=== PATIENT | female | born 1955 | race Caucasian/White ===

== ENCOUNTER 2016-09-01 16:56 | Emergency (ER) | payer OTHER ==
[~2016-09-01] VITALS: Ht 160 cm; Wt 80.0 kg
[~2016-09-01 16:56] MED LIST: AMLO5TAB2 PO; AZEL137S EACH NARE; BRIM0.2S4 EACH EYE; CITA20TA4 PO; DULE100A INH; LANS30CA PO; LEVO50TA4 PO; LISI30TA4 PO; LISI40TA PO; METF500T PO; MONT10TA2 PO; PRIM50TA5 PO; RISP1TAB2 PO; RISP2TAB2 PO; SITA25 PO; TIOT1AER2 INH; ZETI10TA5 PO; cpap FM
[2016-09-01 16:59] VITALS: BP 134/76; PULSE 118; RESP 20; TEMP 98.1; O2SAT 92
[2016-09-01] MEDS ORDERED: SODIUM CHLOR 0.9% 1000 ML INJ 1,000 ML IV SCH (17:27)
[2016-09-01] MEDS ORDERED: ONDANSETRON HCL 4 MG/2 ML VIAL IVP ONE (17:30)
[2016-09-01] MEDS ORDERED: SODIUM CHLORIDE 0.9% FLUSH 5 ML FLUSH IVF PRN (17:30)
--- NOTE | 2016-09-01 17:34 | PD ---
HPI Chief Complaint: GI Complaint Time Seen by Provider: 17:20 Travel History International Travel<30 days: No Contact w/Intl Traveler<30days: No Traveled to known affect area: No History of Present Illness HPI 61-year-old female here for evaluation of nausea, abdominal discomfort, fever, sore throat. Symptoms started today. The patient reports that 2 weeks ago she had a procedure for a deviated nasal septum. Sore throat was worse earlier today, has since improved. She reports a temperature of 99.8F at home. She is able to swallow and tolerate her secretions. No cough or respiratory difficulties. No chest pain. Abdominal discomfort is right mid/upper. She has not vomited. She had 2 normal bowel movements today. History of hysterectomy, ovarian cyst removal, and what she believes appendectomy. She received a flu vaccine this year. No urinary symptoms. PFSH Past Medical History Cancer: No Cardiovascular Problems: Yes (cardiac cath 2004 normal) COPD: Yes Diabetes: Yes (on metformin, januvia) Endocrine: Yes Genitourinary: Yes (frequency) Hepatitis: No Hiatal Hernia: Yes Hypertension: Yes Immune Disorder: No Musculoskeletal: Yes (arthritis hips) Neurologic: Yes (tremors, concussions) Psychiatric: Yes (anxiety, depression, past suicidal ideations) Respiratory: Yes (copd, asthma, emphysema, sleep apnea) Schizophrenia: Yes Thyroid Disease: Yes (levothyroxine) ?: Not Past Surgical History Abdominal Surgery: Yes (appendectomy) AICD: No Body Medical Devices: bilat breast implants Cardiac Surgery: No Ear Surgery: No Endocrine Surgery: No Eye Surgery: No Genitourinary Surgery: Yes (sphincter stretch in urethra) Gynecologic Surgery: Yes (4 surgeries for ovarian cysts, hysterectomy) Hysterectomy: Yes Joint Replacement: No Oral Surgery: Yes (teeth removed for partial plate) Pacemaker: No Thoracic Surgery: Yes (left breast mass removal x 2 in 2015) Other Surgery: Yes (OVARIAN CYST) Social History Alcohol Use: No Tobacco Use: No Substance Use: No Allergies-Medications (Allergen,Severity, Reaction): Coded Allergies: Cipro (Verified Allergy, Severe, Confusion, 09/01/16) general confusion with suicidal ideations Dust (Verified Allergy, Severe, Hives, 09/01/16) Erythromycins (Verified Allergy, Severe, Hives, 09/01/16) HMG-CoA Reductase Inhibitors (Verified Allergy, Severe, VOMITING, 09/01/16) Molds and Smuts (Verified Allergy, Severe, Hives, 09/01/16) Sulfa (Verified Allergy, Severe, Anaphylaxis, 09/01/16) tongue swells Timoptic (Verified Allergy, Severe, Respiratory Failure, 09/01/16) stops breathing Codeine (Verified Allergy, Mild, Nausea/Vomiting, 09/01/16) Hydralazine (Verified Allergy, Unknown, DIFFICULTY BREATHING, HIVES, ) Reported Meds & Prescriptions Reported Meds & Active Scripts Active Reported Dymista Nasal [place] (Azelastine-Fluticasone Nasal [place]) 137-50 Mcg [place] 2 [place] EACH NARE BID To each nostril. Citalopram (Citalopram Hydrobromide) 20 Mg Tab 20 Mg PO DAILY Brimonidine Opth Drops (Brimonidine Tartrate) 0.2% Soln 1 Drop EACH EYE HS Zetia (Ezetimibe) 10 Mg Tab 10 Mg PO DAILY Dulera 120 Act Inh (Mometasone-Formoterol 120 Act Inh) 100-5 Mcg/Act Inh 1 Puff INH BID Spiriva Respimat Inh (Tiotropium Inh) 1.25 Mcg/Act Aero 2 Puff INH DAILY 1.25 mcg = 1 inhalation Singulair (Montelukast Sodium) 10 Mg Tab 10 Mg PO DAILY Primidone 50 Mg Tab 50 Mg PO HS Levothyroxine (Levothyroxine Sodium) 50 Mcg Tab 50 Mcg PO DAILY Lansoprazole 30 Mg Capdr 30 Mg PO DAILY Risperidone 2 Mg Tab 2 Mg PO HS Risperidone 1 Mg Tab 1 Mg PO DAILY AT 0800 Amlodipine (Amlodipine Besylate) 5 Mg Tab 5 Mg PO DAILY Metformin (Metformin HCl) 500 Mg Tab 250 Mg PO BIDPC With meals Januvia (Sitagliptin Phosphate) 25 Mg Tab 12.5 Mg PO DAILY Lisinopril 40 Mg Tab 40 Mg PO HS Lisinopril 30 Mg Tab 30 Mg PO DAILY AT 8AM Review of Systems Except as stated in HPI: all other systems reviewed are Neg Physical Exam Narrative GENERAL: Well-developed, well-nourished, comfortable, no acute distress. SKIN: Warm and dry. No rash. HEAD: Atraumatic. Normocephalic. EYES: Pupils equal and round. No scleral icterus. No injection or drainage. ENT: Mucous membranes pink and dry. Normal pharynx. Airway is patent and protected. Normal phonation. NECK: Trachea midline. No JVD. No nuchal rigidity. CARDIOVASCULAR: Regular rate and rhythm. RESPIRATORY: No accessory muscle use. Clear to auscultation. Breath sounds equal bilaterally. GASTROINTESTINAL: Abdomen soft, nondistended. Mild right middle abdominal tenderness without rebound or guarding. Rest of abdomen is soft and nontender. Normal bowel sounds. MUSCULOSKELETAL: No obvious deformities. No clubbing. No cyanosis. No edema. No CVA tenderness. NEUROLOGICAL: Awake and alert. No obvious cranial nerve deficits. Motor grossly within normal limits. Normal speech. PSYCHIATRIC: Appropriate mood and affect; insight and judgment normal. Data Data Last Documented VS Vital Signs Date Time Temp Pulse Resp B/P Pulse Ox O2 Delivery O2 Flow Rate FiO2 09/01/16 17:40 97 Nasal Cannula 3 09/01/16 17:40 102 18 140/65 09/01/16 16:59 98.1 Orders Complete Blood Count With Diff (09/01/16 17:27) Comprehensive Metabolic Panel (09/01/16 17:27) Lipase (09/01/16 17:27) Prothrombin Time / Inr (Pt) (09/01/16 17:27) Act Partial Throm Time (Ptt) (09/01/16 17:27) Urinalysis - C+S If Indicated (09/01/16 17:27) Ct Abd/Pel W Iv Contrast(Rout) (09/01/16 17:27) Iv Access Insert/Monitor (09/01/16 17:27) Ecg Monitoring (09/01/16 17:27) Oximetry (09/01/16 17:27) Ondansetron Inj (Zofran Inj) (09/01/16 17:30) Sodium Chlor 0.9% 1000 Ml Inj (Ns 1000 M (09/01/16 17:27) Sodium Chloride 0.9% Flush (Ns Flush) (09/01/16 17:30) Influenzae A/B Antigen (09/01/16 17:27) Group A Rapid Strep Screen (09/01/16 17:27) Strep Culture (Group A) (09/01/16 17:40) Chest, Single Ap (09/01/16 ) Ct Pulmonary Angiogram (09/01/16 18:56) Sodium Chlor 0.9% 1000 Ml Inj (Ns 1000 M (09/01/16 19:00) Labs Laboratory Tests Test 09/01/16 17:40 White Blood Count 15.5 TH/MM3 Red Blood Count 4.79 MIL/MM3 Hemoglobin 13.2 GM/DL Hematocrit 39.0 % Mean Corpuscular Volume 81.5 FL Mean Corpuscular Hemoglobin 27.5 PG Mean Corpuscular Hemoglobin 33.8 % Concent Red Cell Distribution Width 15.4 % Platelet Count 319 TH/MM3 Mean Platelet Volume 7.8 FL Neutrophils (%) (Auto) % Lymphocytes (%) (Auto) % Monocytes (%) (Auto) % Eosinophils (%) (Auto) % Basophils (%) (Auto) % Neutrophils # (Auto) TH/MM3 Lymphocytes # (Auto) TH/MM3 Monocytes # (Auto) TH/MM3 Eosinophils # (Auto) TH/MM3 Basophils # (Auto) TH/MM3 CBC Comment Prothrombin Time 10.5 SEC Prothromb Time International 1.0 RATIO Ratio Activated Partial 29.5 SEC Thromboplast Time Urine Color YELLOW Urine Turbidity CLEAR Urine pH 6.5 Urine Specific [place] 1.015 Urine Protein NEG mg/dL Urine Glucose (UA) NEG mg/dL Urine Ketones NEG mg/dL Urine Occult Blood NEG Urine Nitrite NEG Urine Bilirubin NEG Urine Urobilinogen LESS THAN 2.0 MG/DL Urine Leukocyte Esterase NEG Urine RBC LESS THAN 1 /hpf Urine WBC LESS THAN 1 /hpf Microscopic Urinalysis Comment CULT NOT INDICATED Sodium Level 133 MEQ/L Potassium Level 4.0 MEQ/L Chloride Level 99 MEQ/L Carbon Dioxide Level 24.9 MEQ/L Anion Gap 9 MEQ/L Blood Urea Nitrogen 13 MG/DL Creatinine 0.69 MG/DL Estimat Glomerular Filtration 86 ML/MIN Rate Random Glucose 155 MG/DL Calcium Level 8.8 MG/DL Total Bilirubin 0.3 MG/DL Aspartate Amino Transf 17 U/L (AST/SGOT) Alanine Aminotransferase 31 U/L (ALT/SGPT) Alkaline Phosphatase 72 U/L Total Protein 7.3 GM/DL Albumin 3.7 GM/DL Lipase 114 U/L [facility] Medical Decision Making Medical Screen Exam Complete: Yes Emergency Medical Condition: Yes Medical Record Reviewed: Yes Differential Diagnosis Influenza, viral illness, enteritis, colitis, pyelonephritis, UTI, cholecystitis , hepatobiliary disease, dehydration Narrative Course Initial vital signs show heart rate 118, blood pressure 134/76, pulse ox 92% on room air, oral temp of 98.1F. CBC shows WBC 15.5, hemoglobin 13.2, hematocrit 39, platelets 319. CMP is unremarkable. UA is not suggestive of UTI. Patient was made aware of all findings. She is feeling a lot better after receiving Zofran. Her O2 saturation is somewhat low. She does report history of emphysema. Her lung sounds are clear bilaterally. Asthma 7:00 PM at the end of my shift the patient was signed out to oncoming provider Dr. Dickerson will follow up with CT abdomen pelvis, CT pulmonary angiogram , and will disposition the patient. Lionel Winters MD Sep 01, 2016 17:34
[2016-09-01 17:40] VITALS: BP 140/65; PULSE 102; RESP 18; O2SAT 95
[2016-09-01 18:19] LABS: BLOOD, URINE NEG (NEG); GLUCOSE,URINE NEG (NEG); KETONE, URINE NEG (NEG); NITRITE,URINE NEG (NEG); PH, URINE 6.5 (5.0-8.5); URINE COLOR YELLOW (YELLW/STRAW)
[2016-09-01 18:21] LABS: COMMENT (UR) CULT NOT INDICATED; CULTURE IF INDICATED CULT NOT INDICATED
[2016-09-01 18:25] LABS: MEAN CELL VOLUME 81.5 FL (80.0-100.0); MEAN CORPUSCULAR HEMOGLOBIN 27.5 PG (27.0-34.0); MEAN CORPUSCULAR HGB CONC 33.8 % (32.0-36.0); PLATELET COUNT 319 TH/MM3 (150-450); RED BLOOD COUNT 4.79 MIL/MM3 (4.00-5.30); RED CELL DISTRIBUTION WIDTH 15.4 % (11.6-17.2); WHITE BLOOD COUNT 15.5 TH/MM3 (4.0-11.0)
[2016-09-01 18:32] LABS: ANION GAP 9 MEQ/L (5-15); APTT (PATIENT) 29.5 SEC (24.3-30.1); AST (GOT) 17 U/L (15-37); BICARBONATE 24.9 MEQ/L (21.0-32.0); BLOOD UREA NITROGEN 13 MG/DL (7-18); CHLORIDE 99 MEQ/L (98-107); GLOMERULAR FILTRATION RATE 86 ML/MIN (>89); PROTHROMBIN TIME - PATIENT 10.5 SEC (9.8-11.6); SODIUM (NA) 133 MEQ/L (136-145)
[2016-09-01 18:36] LABS: ALKALINE PHOSPHATASE 72 U/L (45-117); ALT (GPT) 31 U/L (10-53); TOTAL BILIRUBIN ADULT 0.3 MG/DL (0.2-1.0)
[2016-09-01] MEDS ORDERED: SODIUM CHLOR 0.9% 1000 ML INJ 1,000 ML IV ONE (19:00)
--- NOTE | 2016-09-01 19:17 | RADRPT ---
EXAM DATE/TIME: 09/01/2016 18:56 [facility] COMPARISON: CHEST SINGLE AP, April 26, 2012, 19:40. INDICATIONS : Flu-like Symptoms, Low O2 sats. MEDICAL HISTORY : Chronic obstructive pulmonary disease. Emphysema. Asthma. SURGICAL HISTORY : Breast Implants. ENCOUNTER: Initial ACUITY: 1 day PAIN SCORE: 0/10 LOCATION: Bilateral chest FINDINGS: A single view of the chest demonstrates the lungs to be symmetrically aerated without evidence of mas s, infiltrate or effusion. The cardiomediastinal contours are unremarkable. Spurs are seen in the th oracic spine. CONCLUSION: No acute disease. Frederick Moran MD on September 01, 2016 at 19:15 Board Certified Radiologist. This report was verified electronically.
[2016-09-01] MEDS ORDERED: IOHEXOL 350 MG/ML 10 ML VIAL (for RAD DIAG) IV ONE (19:22)
[2016-09-01 19:40] VITALS: BP 137/64; PULSE 99; RESP 18; O2SAT 95
--- NOTE | 2016-09-01 19:42 | RADRPT ---
EXAM DATE/TIME: 09/01/2016 19:12 [facility] COMPARISON: No previous studies available for comparison. INDICATIONS : Shortness of breath, cough and chest pain. IV CONTRAST: 100 cc Omnipaque 350 (iohexol) IV ; Cumulative dose for multiple exams. RADIATION DOSE: 19.26 CTDIvol (mGy) MEDICAL HISTORY : Hypertension. Cardiovascular disease Diabetes mellitus type 2. SURGICAL HISTORY : Appendectomy. Hysterectomy. ENCOUNTER: Initial ACUITY: 2 days PAIN SCALE: 5/10 LOCATION: Bilateral lower chest TECHNIQUE: Volumetric scanning of the chest was performed using a pulmonary embolism protocol MIP images were reconstructed. Using automated exposure control and adjustment of the mA and/or kV acco rding to patient size, radiation dose was kept as low as reasonably achievable to obtain optimal diag nostic quality images. FINDINGS: No pulmonary embolus is seen. There is emphysematous change seen in the lungs being wo rse in the upper lobes. There is some mild suspected atelectasis at the bases being worse on the lef t. There is a focal area of fat seen in the posterior left base likely related to a Bochdalek type h ernia containing fat. This is an incidental benign finding. There is a mild hiatal hernia present. Bilateral breast implants are present. CONCLUSION: 1. No pulmonary embolus. 2. Prominent emphysematous change. 3. Mild hiatal hernia. Frederick Moran MD on September 01, 2016 at 19:26 Board Certified Radiologist. This report was verified electronically.
--- NOTE | 2016-09-01 19:45 | RADRPT ---
EXAM DATE/TIME: 09/01/2016 19:07 [facility] COMPARISON: No previous studies available for comparison. INDICATIONS : Nausea and vomiting with abdominal pain. IV CONTRAST: 100 cc Omnipaque 350 (iohexol) IV ; Cumulative dose for multiple exams. ORAL CONTRAST: No oral contrast ingested. RADIATION DOSE: 11.74 CTDIvol (mGy) MEDICAL HISTORY : Cardiovascular disease. Hypertension. Diabetes mellitus type 2.Hiatal hernia. SURGICAL HISTORY : Hysterectomy. Appendectomy. ENCOUNTER: Initial ACUITY: 1 day PAIN SCALE: 5/10 LOCATION: Bilateral lower quadrant TECHNIQUE: Volumetric scanning of the abdomen and pelvis was performed. Using automated exposure control and adjustment of the mA and/or kV according to patient size, radiation dose was kept as low as reasonably achievable to obtain optimal diagnostic quality images. FINDINGS: There is a mild hiatal hernia present. The liver, spleen, pancreas, adrenal glands and kidneys appear normal. There are a few scattered colonic diverticula particularly in the sigmoid re gion. Significant inflammatory change is not seen. Atherosclerotic calcifications are seen througho ut the arterial system. No aneurysm is present. The pelvic structures appear grossly intact. The p atient appears to be status post hysterectomy. There is degenerative change in the lumbar spine. The re is Bochdalek type hernia seen at the posterior left base. This is an incidental finding. CONCLUSION: 1. Mild hiatal hernia. 2. Scattered colonic diverticula. Frederick Moran MD on September 01, 2016 at 19:27 Board Certified Radiologist. This report was verified electronically.
[2016-09-01 20:23] LABS: HEMO FLAGS AUTO DIFF
[2016-09-01 20:27] LABS: BANDS 2 % (0-6); NEUTROPHIL # MANUAL DIFF 14.1 TH/MM3 (1.8-7.7); PLATELET MORPHOLOGY NORMAL (NORMAL); POLYS (SEG NEUTROPHILS) 89 % (16-70); WBC DIFF SAMPLE 100
[2016-09-01 20:28] LABS: PLATELET ESTIMATE SMEAR NORMAL (NORMAL); SCAN/DIFF FINAL DIFF MANUAL; SLIDE REVIEW N
[2016-09-01] MEDS ORDERED: ZOFR4TAB3 SL (21:31)
--- NOTE | 2016-09-01 21:32 | PD ---
Data Data Last Documented VS Vital Signs Date Time Temp Pulse Resp B/P Pulse Ox O2 Delivery O2 Flow Rate FiO2 09/01/16 21:44 98.9 102 16 136/62 98 09/01/16 19:40 Nasal Cannula 3 Orders Complete Blood Count With Diff (09/01/16 17:27) Comprehensive Metabolic Panel (09/01/16 17:27) Lipase (09/01/16 17:27) Prothrombin Time / Inr (Pt) (09/01/16 17:27) Act Partial Throm Time (Ptt) (09/01/16 17:27) Urinalysis - C+S If Indicated (09/01/16 17:27) Ct Abd/Pel W Iv Contrast(Rout) (09/01/16 17:27) Iv Access Insert/Monitor (09/01/16 17:27) Ecg Monitoring (09/01/16 17:27) Oximetry (09/01/16 17:27) Ondansetron Inj (Zofran Inj) (09/01/16 17:30) Sodium Chlor 0.9% 1000 Ml Inj (Ns 1000 M (09/01/16 17:27) Sodium Chloride 0.9% Flush (Ns Flush) (09/01/16 17:30) Influenzae A/B Antigen (09/01/16 17:27) Group A Rapid Strep Screen (09/01/16 17:27) Strep Culture (Group A) (09/01/16 17:40) Chest, Single Ap (09/01/16 ) Ct Pulmonary Angiogram (09/01/16 18:56) Sodium Chlor 0.9% 1000 Ml Inj (Ns 1000 M (09/01/16 19:00) Iohexol 350 Inj (Omnipaque 350 Inj) (09/01/16 19:22) Labs Laboratory Tests Test 09/01/16 17:40 White Blood Count 15.5 TH/MM3 Red Blood Count 4.79 MIL/MM3 Hemoglobin 13.2 GM/DL Hematocrit 39.0 % Mean Corpuscular Volume 81.5 FL Mean Corpuscular Hemoglobin 27.5 PG Mean Corpuscular Hemoglobin 33.8 % Concent Red Cell Distribution Width 15.4 % Platelet Count 319 TH/MM3 Mean Platelet Volume 7.8 FL Neutrophils (%) (Auto) % Lymphocytes (%) (Auto) % Monocytes (%) (Auto) % Eosinophils (%) (Auto) % Basophils (%) (Auto) % Neutrophils # (Auto) TH/MM3 Lymphocytes # (Auto) TH/MM3 Monocytes # (Auto) TH/MM3 Eosinophils # (Auto) TH/MM3 Basophils # (Auto) TH/MM3 CBC Comment AUTO DIFF Differential Total Cells 100 Counted Neutrophils % (Manual) 89 % Band Neutrophils % 2 % Lymphocytes % 2 % Monocytes % 7 % Neutrophils # (Manual) 14.1 TH/MM3 Differential Comment FINAL DIFF MANUAL Platelet Estimate NORMAL Platelet Morphology Comment NORMAL Red Cell Morphology Comment NORMAL Prothrombin Time 10.5 SEC Prothromb Time International 1.0 RATIO Ratio Activated Partial 29.5 SEC Thromboplast Time Urine Color YELLOW Urine Turbidity CLEAR Urine pH 6.5 Urine Specific [place] 1.015 Urine Protein NEG mg/dL Urine Glucose (UA) NEG mg/dL Urine Ketones NEG mg/dL Urine Occult Blood NEG Urine Nitrite NEG Urine Bilirubin NEG Urine Urobilinogen LESS THAN 2.0 MG/DL Urine Leukocyte Esterase NEG Urine RBC LESS THAN 1 /hpf Urine WBC LESS THAN 1 /hpf Microscopic Urinalysis Comment CULT NOT INDICATED Sodium Level 133 MEQ/L Potassium Level 4.0 MEQ/L Chloride Level 99 MEQ/L Carbon Dioxide Level 24.9 MEQ/L Anion Gap 9 MEQ/L Blood Urea Nitrogen 13 MG/DL Creatinine 0.69 MG/DL Estimat Glomerular Filtration 86 ML/MIN Rate Random Glucose 155 MG/DL Calcium Level 8.8 MG/DL Total Bilirubin 0.3 MG/DL Aspartate Amino Transf 17 U/L (AST/SGOT) Alanine Aminotransferase 31 U/L (ALT/SGPT) Alkaline Phosphatase 72 U/L Total Protein 7.3 GM/DL Albumin 3.7 GM/DL Lipase 114 U/L [facility] Supervised Visit with CELSO: No Narrative Course Patient care assumed from Dr. Winters at 1900 patient abdomen is benign, CT scan and x-rays reviewed normal. Her pain is resolved. Her abdomen exam is benign. She appears well in no apparent distress. No definitive cause of her abdominal pain is been iced that at this time. However she is stable for discharge. She requests to go home. Discussed follow-up with her primary care physician. Diagnosis Primary Impression: Abdominal pain Med/Other Pt SpecificInfo: Prescription(s) given Scripts Ondansetron Odt (Zofran Odt)4 Mg Tab4 Mg SL Q6HR PRN (Nausea/Vomiting) #30 TAB Ref 0 Prov:Elier Dickerson MD 09/01/16 Disposition: 01 DISCHARGE HOME Condition: Stable Elier Dickerson MD Sep 01, 2016 21:32
[2016-09-01 21:44] VITALS: BP 136/62; TEMP 98.9
== END 2016-09-01 21:45 | disposition home or self-care (01) ==
LOC: NEPC 16:56
DX: R10.9 Unspecified abdominal pain (principal); J02.9 Acute pharyngitis, unspecified; R06.02 Shortness of breath; I10 Essential (primary) hypertension; E11.9 Type 2 diabetes mellitus without complications; J44.9 Chronic obstructive pulmonary disease, unspecified; Z79.84 Long term (current) use of oral hypoglycemic drugs
CPT/HCPCS: 71010; 71275; 74177; 80053; 81001; 83690; 85007; 85027; 85610; 85730; 87081; 87804; 87880; 96361; 96374; 99284; J2405; J7030; Q9967